=== PATIENT | male | born 1950 | race Caucasian/White ===

== ENCOUNTER 2023-08-11 07:45 | Outpatient (CLI) | payer MEDICARE, BC, SELFPAY ==
--- NOTE | 2023-08-11 08:15 | MR_ITS ---
Patient: ANDERSON MOORE Facility:?[facility] Patient ID:?[id number] Site Patient [id number]:?[id number]. Site :?[id number] Study:?MRI-Abdomen Angio W/WO 40 CC DOTAREM KIDNEYS-08/11/2023 10:44:44 AM Ordering Physician:TAI DO Final Report: INDICATION: Stage III chronic renal disease. COMPARISON: CT abdomen and pelvis with intravenous contrast August 15, 2027. TECHNIQUE: Precontrast T1 and T2 weighted imaging; T2 haste imaging; diffusion-weighted imaging; in- and out of phase imaging; postcontrast imaging including subtraction; 40 cc of Dotarem contrast was injected. FINDINGS: No focal hepatic or splenic pathology. No pancreatic pathology. Status post cholecystectomy. No adrenal pathology. No kidney stones or obstructive uropathy. 1 cm cortical cyst lower pole left kidney. No retroperitoneal lymphadenopathy. No evidence of abdominal ascites. A single renal artery on each side without any evidence of renal artery stenosis. Origin of the celiac axis, superior mesenteric and inferior mesenteric arteries are unremarkable. IMPRESSION: 1. Status post cholecystectomy. 2. Negative MRI of the abdomen without and with intravenous contrast. 3. 1 cm cortical cyst lower pole left kidney. 4. No MR evidence of renal artery stenosis. Dictated by Penny Allen MD @ 08/12/2023 12:49:52 PM Signed by:?Penny Allen MD @08/12/2023 12:49:52 PM (Electronic Signature)
== END 2023-08-11 07:46 | disposition home or self-care (01) ==
LOC: MRI 07:47
PROVIDERS: PCP Family Medicine; Visit Provider Internal Medicine Nephrology
DX: N18.31 Chronic kidney disease, stage 3a (principal); N28.1 Cyst of kidney, acquired
CPT/HCPCS: 74185; A9575

== ENCOUNTER 2023-08-21 08:59 | Outpatient (CLI) | payer MEDICARE, BC, SELFPAY ==
--- NOTE | 2023-08-21 10:23 | W.ANESCHARGE ---
Anesthesia Charges Start Date/Time Anesthesia Start Date: 08/21/23 Anesthesia Start Time: 09:35 Stop Date/Time Anesthesia Stop Date: 08/21/23 Anesthesia Stop Time: 10:20
--- NOTE | 2023-08-21 11:10 | W.ANESCHARGE ---
Anesthesia Charges Start Date/Time Anesthesia Start Date: 08/21/23 Anesthesia Start Time: 09:35 Stop Date/Time Anesthesia Stop Date: 08/21/23 Anesthesia Stop Time: 10:20 Summary Extremes of Age - Over 70 or under 1: MDA
== END 2023-08-21 09:00 | disposition home or self-care (01) ==
LOC: OP CLINIC 09:00
PROVIDERS: PCP Family Medicine; Visit Provider Internal Medicine Gastroenterology
DX: Z12.11 Encounter for screening for malignant neoplasm of colon (principal); K63.5 Polyp of colon; Q43.8 Other specified congenital malformations of intestine; Z86.010 Personal history of colon polyps
CPT/HCPCS: 00811; 45380; 45385; 88305; 99100; J2704

== ENCOUNTER 2023-10-09 07:37 | Outpatient (CLI) | payer MEDICARE, BC, SELFPAY ==
--- NOTE | 2023-10-09 09:17 | W.ANESCHARGE ---
Anesthesia Charges Start Date/Time Anesthesia Start Date: 10/09/23 Anesthesia Start Time: 08:52 Stop Date/Time Anesthesia Stop Date: 10/09/23 Anesthesia Stop Time: 09:10 Summary Extremes of Age - Over 70 or under 1: [employer]
--- NOTE | 2023-10-09 10:19 | W.ANESCHARGE ---
Anesthesia Charges Start Date/Time Anesthesia Start Date: 10/09/23 Anesthesia Start Time: 08:52 Stop Date/Time Anesthesia Stop Date: 10/09/23 Anesthesia Stop Time: 09:10 Summary Extremes of Age - Over 70 or under 1: MDA
== END 2023-10-09 07:38 | disposition home or self-care (01) ==
LOC: OP CLINIC 07:38
PROVIDERS: PCP Family Medicine; Visit Provider Internal Medicine Gastroenterology
DX: R13.10 Dysphagia, unspecified (principal); K31.89 Other diseases of stomach and duodenum
CPT/HCPCS: 43239; 43248; 731; 88305; 99100; J2704; J3490